=== PATIENT | female | born 1985 | race Caucasian/White ===

== ENCOUNTER 2024-10-10 20:39 | Emergency (ER) | payer OTHER ==
[~2024-10-10] VITALS: Ht 177.8 cm; Wt 81.6 kg
[2024-10-10] MEDS ORDERED: ACETAMINOPHEN ES 500 MG TABLET ONE (21:04)
[2024-10-10] MEDS: ACETAMINOPHEN ES 500 MG TABLET PO ONE (21:16)
[2024-10-10] MEDS: IV NS 0.9% 500 ML BAG IV ONE (21:16)
[2024-10-10 21:18] LABS: PLATELET COUNT (AUTO) 272 K/uL (150-450); RED BLOOD CELL COUNT(AUTO) 4.72 MIL/uL (4.0-5.2); RED CELL DISTRIBUTION WIDTH 13.2 % (11.5-15.0); WHITE BLOOD COUNT (AUTO) 12.3 K/uL (4.3-11.0)
[2024-10-10 21:27] LABS: APPEARANCE,URINE CLEAR (CLEAR); BLOOD, URINE NEGATIVE Ery/uL (NEGATIVE); LEUKOCYTE ESTERASE ,URINE NEGATIVE (NEGATIVE); NITRITE, URINE NEGATIVE (NEGATIVE); UGLUCOSE NEGATIVE (NEGATIVE)
[2024-10-10 21:31] LABS: PREGNANCY TEST URINE QUAL NEGATIVE (NEGATIVE)
[2024-10-10 21:38] LABS: CALCIUM, SERUM 9.3 mg/dL (8.5-10.1); CREATININE 1.2 mg/dL (0.6-1.3); SODIUM SERUM 141.0 mmol/L (136-145); UREA NITROGEN, BLOOD 9.0 mg/dL (7-18)
[2024-10-10 21:42] LABS: ASPARTATE AMINOTRANSFERASE 14.0 U/L (15-37); TOTAL PROTEIN, SERUM 7.9 g/dL (6.4-8.2)
[2024-10-10] MEDS ORDERED: IBUP-1957 PO (23:19)
[2024-10-11 00:42] VITALS: BP 122/79; TEMP 98.5; O2SAT 94
== END 2024-10-11 00:15 | disposition home or self-care (01) ==
LOC: ER 20:41
DX: N83.209 Unspecified ovarian cyst, unspecified side (principal); Z79.1 Long term (current) use of non-steroidal anti-inflammatories (NSAID); Z60.2 Problems related to living alone
CPT/HCPCS: 99284; 76856; 85025; 80048; 83690; 80076; 84703; 81003; 36415; J7040